=== PATIENT | female | born 1960 | race Caucasian/White ===

== ENCOUNTER 2016-09-03 06:38 | Day surgery (SDC) | payer OTHER ==
--- NOTE | 2016-08-31 09:11 | HP ---
DATE: 09/03/16 ADMISSION DIAGNOSIS: 1. THREE YEAR FOLLOW-UP OF POLYPS. ANTICIPATED PROCEDURE: 1. Colonoscopy. PAST MEDICAL HISTORY: ALLERGIES: NONE. CURRENT MEDICATIONS: See list. SURGERIES: Appendectomy, tonsillectomy, bunion surgery. SOCIAL HISTORY: Negative. FAMILY HISTORY: Negative. REVIEW OF SYSTEMS: See list. PHYSICAL EXAMINATION: Vital signs normal. CHEST: Clear. COR: Regular. ABDOMEN: Satisfactory. IMPRESSION: 1. THREE YEAR FOLLOW-UP OF POLYPS. PLAN: Colonoscopy.
[2016-09-03] MEDS ORDERED: Sodium Chloride 0.9% 1000 ML 1,000 ML IV SCH (07:00)
[2016-09-03] MEDS ORDERED: Sodium Chloride 0.9% 1000 ML 1,000 ML ONE ×2 (07:07→09:16)
[2016-09-03] MEDS ORDERED: Zofran 4 MG/2 ML VIAL IV ONE (08:00)
[2016-09-03] MEDS ORDERED: VERSED 5 MG/5 ML IV ONE (08:00)
[2016-09-03] MEDS ORDERED: DEMEROL 50 MG IV ONE (08:00)
[2016-09-03 11:13] VITALS: BP 84/54; PULSE 55
[2016-09-03 11:45] VITALS: O2SAT 97
--- NOTE | 2016-09-03 16:20 | OP ---
SURGERY DATE: 09/03/16 SURGERY TIME: 0900 PREOPERATIVE DIAGNOSIS: 1. FOLLOW-UP POLYPS. POSTOPERATIVE DIAGNOSIS: 1. ONE POLYP, PROBABLY ADENOMATOUS. PROCEDURE: 1. Colonoscopy complete to cecum with hot polypectomy X 1. SURGEON: Darnell Fregoso M.D. ANESTHESIA: IV sedation. COMPLICATIONS: None. CONDITION: Stable. INDICATION: Patient requiring colonoscopy. She has had polyps in the past. She presents for 3 year follow-up. OPERATIVE PROCEDURE: She was taken to endoscopy. Left lateral decubitus position. After suitable sedation obtained, scope advanced. Scope advanced to the cecum. On circumferential withdrawal, the exam was excellent. She had taken a very satisfactory bowel prep. The colon mucosa was totally normal. In the distal sigmoid, there was an 8 mm polyp, probably adenomatous, taken with hot biopsy forceps to extinction. Rectum and anus satisfactory. IMPRESSION: 1. SUCCESSFUL HOT POLYPECTOMY X 1. PLAN: Follow-up in 3 years.
== END 2016-09-03 11:25 | disposition home or self-care (01) ==
LOC: SDC 06:38
PROVIDERS: ATTEND Surgery
PROC: 0DBN8ZX Excision of Sigmoid Colon, Via Natural or Artificial Opening Endoscopic, Diagnostic (ICD-10-PCS; principal; 2016-09-03)
DX: D12.5 Benign neoplasm of sigmoid colon (principal); Z86.010 Personal history of colon polyps
CPT/HCPCS: 36415; 88305; J2175; J2250; J2405

== ENCOUNTER 2019-11-30 08:57 | Day surgery (SDC) | payer OTHER ==
--- NOTE | 2019-11-23 09:23 | HP ---
DATE OF SURGERY: 11/30/2019 HISTORY OF PRESENT ILLNESS: The patient presents for colonoscopy. She denies any GI signs or symptoms. No rectal bleeding. No pain. She had a colonoscopy in 2017 with colon polyp with tubular adenoma. She does report a family history of dad and sister that had colorectal cancer. PAST MEDICAL HISTORY: Hyperlipidemia. PAST SURGICAL HISTORY: Bunion removed. ALLERGIES: NKDA. MEDICATIONS: Low dose aspirin. FAMILY HISTORY: Dad and sister with colorectal cancer. Sister with breast cancer. SOCIAL HISTORY: Reports occasional alcohol. REVIEW OF SYSTEMS: CONSTITUTIONAL: No fever or chills. CHEST: Denies shortness of breath. CVS: Denies chest pain. ABDOMEN: Denies pain, nausea, vomiting, diarrhea, constipation or rectal bleeding. : Denies dysuria or hematuria. PHYSICAL EXAMINATION: GENERAL: No acute distress. CHEST: Nonlabored. No shortness of breath. CVS: Regular rate and rhythm. ABDOMEN: Soft, nontender to palpation. EXTREMITIES: No edema. NEUROLOGIC: Alert. PSYCHIATRIC: Appropriate. ASSESSMENT: History of colon polyps and positive family history of colon cancer. PLAN: Screening colonoscopy with Dr. Darnell Fregoso. As dictated by Danii Spann NP.
[2019-11-30] MEDS ORDERED: DIPRIVAN 200 MG/20 ML IV ONE ×3 (09:37→10:13)
[2019-11-30] MEDS ORDERED: Xylocaine-Mpf 2% 5 Ml Vial ONE (09:52)
[2019-11-30] MEDS ORDERED: Lactated Ringers 1,000 ML IV SCH (10:00)
[2019-11-30] MEDS ORDERED: GlucaGen 1 MG ONE (10:02)
[2019-11-30] MEDS ORDERED: Lactated Ringers 1,000 ML IV ONE (10:04)
[2019-11-30 14:01] VITALS: O2SAT 99
[2019-11-30 14:22] VITALS: PULSE 60
[2019-11-30 14:23] VITALS: BP 124/91
--- NOTE | 2019-11-30 14:31 | OP ---
SURGERY DATE/TIME: 11/30/2019 1250 PREOPERATIVE DIAGNOSIS: Family history of colon cancer, personal history of polyp three year follow up. POSTOPERATIVE DIAGNOSIS: Family history of colon cancer, personal history of polyp three year follow up. PROCEDURES: 1) Colonoscopy complete to cecum. 2) Cold polypectomy x1. SURGEON: Darnell Fregoso M.D. ANESTHESIA: MAC. COMPLICATIONS: None. CONDITION: Stable. INDICATION: The patient presents for three year follow up. She is scheduled under MAC sedation. She did have a redundant colon last time that did require a fairly generous amount of IV sedation. DESCRIPTION OF PROCEDURE: She is taken to endoscopy. MAC sedation provided. Scope introduced. Anal examination satisfactory. Rectum, sigmoid. Sigmoid slightly redundant. Descending colon, splenic flexure quite redundant. Transverse colon redundant. With elevation of the abdomen, the hepatic flexure was turned and the scope placed into the very base of the cecum. There was no appendiceal orifice. The ileocecal valve was normal. The base of the cecum looked totally normal. Ascending, hepatic, transverse, splenic, descending, sigmoid other than being redundant was normal. Very difficult sigmoid. A 4 mm polyp taken with cold biopsy forceps this looked totally innocent. Rectum and anus satisfactory. PLAN: We will stretch this out to five years and she can call for the result of her cold polyp biopsy which looked totally benign.
== END 2019-11-30 14:40 | disposition home or self-care (01) ==
LOC: SDC 08:57
PROVIDERS: ATTEND Surgery
DX: Z09 Encounter for follow-up examination after completed treatment for conditions other than malignant neoplasm (principal); Z86.010 Personal history of colon polyps; K63.5 Polyp of colon; Z80.0 Family history of malignant neoplasm of digestive organs; Z80.3 Family history of malignant neoplasm of breast
CPT/HCPCS: 88305; J1610; J2704

== ENCOUNTER 2021-02-27 06:00 | Day surgery (SDC) | payer OTHER ==
--- NOTE | 2021-02-20 11:46 | HP ---
DATE OF SURGERY: 02/27/2021 HISTORY OF PRESENT ILLNESS: The patient is a 60 year-old female who presents with complaints of dysphagia and also patient stated had some fullness and feeling something getting stuck in her upper esophagus. The patient had reported right upper quadrant pain with all foods. The patient currently is taking Protonix, reports this medicine is not helping. She states that the right upper quadrant pain has been going on for about three months. She does have some nausea and vomiting at times with this. The patient has not had an EGD to date. She did have a gallbladder ultrasound showing some sludge. The patient is up-to-date on her colonoscopy. PAST MEDICAL HISTORY: Hyperlipidemia. PAST SURGICAL HISTORY: Appendectomy. Tonsillectomy. Bladder lift. ALLERGIES: NKDA. MEDICATIONS: Rosuvastatin, calcium, aspirin. FAMILY HISTORY: Chronic obstructive pulmonary disease, coronary artery disease, hypertension, breast cancer, rectal cancer. SOCIAL HISTORY: Reports two drinks per day. REVIEW OF SYSTEMS: CONSTITUTIONAL: Denies fever or chills. CHEST: Denies shortness of breath. CVS: Denies chest pain. ABDOMEN: Reports right upper quadrant pain, nausea, vomiting. Denies diarrhea, constipation or rectal bleeding. PHYSICAL EXAMINATION: GENERAL: No acute distress. CHEST: Nonlabored. No shortness of breath. CVS: Regular rate and rhythm. ABDOMEN: Soft, tender in the right upper quadrant. IMPRESSION: Dysphagia, clinical cholecystitis with gallbladder sludge. PLAN: EGD and laparoscopic cholecystectomy with Dr. Darnell Fregoso. As dictated by Danii Spann NP.
[2021-02-27] MEDS ORDERED: Lactated Ringers 1,000 ML IV ONE ×2 (06:10→06:53)
[2021-02-27] MEDS ORDERED: Lactated Ringers 1,000 ML IV SCH (06:30)
[2021-02-27] MEDS ORDERED: Sensorcaine 0.25% 10 ML ONE (06:53)
[2021-02-27] MEDS ORDERED: MEFOXIN 2 GM PREMIX** 2 GM/50 ML ML IV ONE (07:52)
[2021-02-27] MEDS ORDERED: SUBLIMAZE 100 MCG/2 ML ONE ×3 (08:12→10:08)
[2021-02-27] MEDS ORDERED: Zemuron 100 MG/10 ML ONE (08:13)
[2021-02-27] MEDS ORDERED: Zofran 4 MG/2 ML VIAL ONE (08:13)
[2021-02-27] MEDS ORDERED: Decadron 4 MG INJ ONE (08:13)
[2021-02-27] MEDS ORDERED: DIPRIVAN 200 MG/20 ML IV ONE (08:13)
[2021-02-27] MEDS ORDERED: Versed 2 MG/2 ML Injection ONE (08:34)
[2021-02-27] MEDS ORDERED: TORAdol 30 mg Injection ONE (09:23)
[2021-02-27] MEDS ORDERED: BRIDION 200MG/2ML IV ONE (09:23)
[2021-02-27 11:24] VITALS: O2SAT 99
[2021-02-27 11:26] VITALS: BP 134/81; PULSE 53
--- NOTE | 2021-02-27 15:04 | OP ---
SURGERY DATE: 02/27/2021 SURGERY TIME: 831 PREOPERATIVE DIAGNOSIS: 1. EPIGASTRIC PAIN, SYMPTOMS OF REFLUX. 2. RIGHT UPPER QUADRANT PAIN. ULTRASOUND REVEALING SLUDGE AND THICKWALLED GALLBLADDER AND DISTENDED GALLBLADDER. POSTOPERATIVE DIAGNOSIS: 1. CHRONIC CHOLECYSTITIS WITH GALLBLADDER WALL DISTENTION. 2. GRADE I/IV GASTROESOPHAGEAL REFLUX DISEASE. NO HIATAL HERNIA. PROCEDURE: 1. Laparoscopic cholecystectomy. 2. EGD. SURGEON: Darnell Fregoso M.D. [employer] GE[employer]: [facility] resident. ANESTHESIA: General. COMPLICATIONS: None. CONDITION: Stable. INDICATION: Patient requiring evaluation. OPERATIVE PROCEDURE: Taken to surgery. General anesthetic. Phrenoesophageal junction normal. Esophagus normal down to gastroesophageal junction. Esophagitis grade I. No hiatal hernia. Fundus, body, and antrum normal. Pylorus normal. Duodenal bulb normal. 2nd portion normal. Scope withdrawn and looped upon itself. Esophagogastric junction normal from below with no hiatal hernia. IMPRESSION: 1. GRADE I GASTROESOPHAGEAL REFLUX DISEASE. Routine prep and drape for laparoscopy. Veress needle inserted. Opened to a pressure of 1. Insufflated to a pressure of 14. Four 5's. Good visualization. The gallbladder was totally tucked in behind the omentum with adhesions. These omental adhesions were all taken down. The gallbladder was fairly long and distended. Cystic duct was chronically inflamed. Cystic duct, cystic artery, triangle of Calot. Cystic duct triply Ligaclipped and transected. Cystic artery triply Ligaclipped and transected. Clips totally cross wall approximated. Gallbladder rolled out of gallbladder fossa. Gallbladder delivered through the epigastric port with just slight widening. No bleeding was present. The hole was not large. No hole closure device was used. The field was dry. CO2 was exsufflated. Skin closed with 4-0 Vicryl and Steri-strips. Patient tolerated the procedure satisfactory.
== END 2021-02-27 11:32 | disposition home or self-care (01) ==
LOC: SDC 06:00
PROVIDERS: ATTEND Surgery
DX: K21.9 Gastro-esophageal reflux disease without esophagitis (principal); K81.1 Chronic cholecystitis; Z79.899 Other long term (current) drug therapy
CPT/HCPCS: 88304; J0694; J1100; J1885; J2250; J2405; J2704; J3010